=== PATIENT | male | born 1990 | race Caucasian/White ===

== ENCOUNTER 2024-03-30 21:05 | Emergency (ER) | payer OTHER, SELFPAY ==
[2024-03-30 21:17] VITALS: BP 132/86; PULSE 89; TEMP 36.8; O2SAT 95; BMI 30.7
[2024-03-30 21:40] LABS: Internal Control Within Normal Limits; Strep A Antigen Screen Negative
--- NOTE | 2024-03-30 21:41 | ED_ITS ---
HPI - URI/Sore Throat General Chief Complaint: Upper Respiratory Infection Stated Complaint: Sore Throat, URTI Time Seen by Provider: 03/30/24 21:38 Source: patient Limitations: no limitations History of Present Illness HPI Narrative: presents complaining of URI symptoms for past 2 weeks. State it did improve for short while but is now back. mild hoarse voice. Concern he may have strep throat. No cough or dyspnea. Does have past history of asthma. no abdominal pain Related Data Home Medications ?Medication ?Instructions ?Recorded ?Confirmed alprazolam 1 mg tablet mg 03/30/24 apixaban 5 mg tablet (Eliquis) mg 03/30/24 ciprofloxacin HCl 500 mg tablet mg 03/30/24 cyclobenzaprine 10 mg tablet mg 03/30/24 dextroamphetamine-amphetamine 20 03/30/24 mg tablet docusate sodium 100 mg capsule mg PO 03/30/24 methadone 10 mg tablet 10 mg PO DAILY 03/30/24 03/30/24 sodium bicarbonate 650 mg tablet mg 03/30/24 Allergies Allergy/AdvReac Type Severity Reaction Status Date / Time dicyclomine [From Bentyl] Allergy Unknown Verified 03/30/24 21:21 Review of Systems ROS Status of ROS 10 or more systems reviewed and unremark able except as noted in history and below Exam Constitutional Vital Signs, click to edit/add: Last Vital Signs Temp 98.2 F 03/30/24 21:17 Pulse 89 03/30/24 21:17 Resp 18 03/30/24 21:17 BP 132/86 03/30/24 21:17 Pulse Ox 95 03/30/24 21:17 O2 Del Method Room Air 03/30/24 21:17 Common normals: no apparent distress, average body habitus, oriented x3, no limitations, healthy appearing, alert and well nourished [facility] Common normals: normocephalic and head/scalp atraumatic Other: pharynx erythematous.. no exudate or swelling. mild hoarse voice Eye Common normals: EOMs intact bilaterally and conjunctivae normal Respiratory Common normals: normal respiratory effort, no retractions, no use of accessory muscles and clear to auscultation bilaterally Cardio Common normals: regular rate, regular rhythm, S1 normal heart sound and S2 normal heart sound Extremity Common normals: normal to inspection and full ROM Neuro Common normals: oriented x3, CN's II-XII intact bilaterally, moves all extremities and no focal motor deficits Psych Appearance: grossly normal Course Vital Signs Vital signs: Vital Signs Temperature 98.2 F 03/30/24 21:17 Pulse Rate 89 03/30/24 21:17 Respiratory Rate 18 03/30/24 21:17 Blood Pressure 132/86 03/30/24 21:17 Pulse Oximetry 95 03/30/24 21:17 Oxygen Delivery Method Room Air 03/30/24 21:17 Temperature 98.2 F 03/30/24 21:17 Pulse Rate 89 03/30/24 21:17 Respiratory Rate 18 03/30/24 21:17 Blood Pressure 132/86 03/30/24 21:17 Pulse Oximetry 95 03/30/24 21:17 Oxygen Delivery Method Room Air 03/30/24 21:17 MDM - URI/Sore Throat MDM Narrative Medical decision making narrative: patient presents complaining of sore throat. States others at work have been ill with similar symptoms. he is able to swallow. voice is a little hoarse. strep screen neg. Patient informed of working diagnosis of viral pharyngitis and discharged home Lab Data Labs: Lab Results 03/30/24 Range/Units 21:24 Streptococcus Screen Negative Discharge Plan Discharge Stand Alone Forms: Portal Instructions Chief Complaint: Upper Respiratory Infection Clinical Impression: Viral infection, Pharyngitis Patient Disposition: Home, Self-Care Prescriptions / Home Meds: No Action cyclobenzaprine 10 mg tablet alprazolam 1 mg tablet ciprofloxacin HCl 500 mg tablet sodium bicarbonate 650 mg tablet dextroamphetamine-amphetamine 20 mg tablet docusate sodium 100 mg capsule PO Eliquis 5 mg tablet methadone 10 mg tablet 10 mg PO DAILY Print Language: Spanish Instructions: Pharyngitis (ED), Viral Syndrome (ED) Additional Instructions: Tylenol and/or motrin as needed for pain. Referrals: Physician,Non-Staff, MD [Primary Care Provider] - 1 week
== END 2024-03-30 22:17 | disposition home or self-care (01) ==
PROVIDERS: Emergency Provider Internal Medicine
DX: J02.9 Acute pharyngitis, unspecified (principal); B34.9 Viral infection, unspecified
CPT/HCPCS: 87070; 87880; 99283